=== PATIENT | male | born 1985 | race American Indian/Alaskan Native ===

== ENCOUNTER 2017-02-19 06:11 | Emergency (ER) | payer SELFPAY ==
[2017-02-19 06:12] VITALS: BMI 26.6
[2017-02-19 06:27] VITALS: TEMP 98.1
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
[2017-02-19 08:13] VITALS: BP 121/78; PULSE 67; RESP 18; O2SAT 99
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
== END 2017-02-19 08:17 | disposition home or self-care (01) ==
LOC: C.ER 06:11
DX: S39.012A Strain of muscle, fascia and tendon of lower back, initial encounter (principal); S80.01XA Contusion of right knee, initial encounter; V89.2XXA Person injured in unspecified motor-vehicle accident, traffic, initial encounter

== ENCOUNTER 2017-02-20 17:42 | Emergency (ER) | payer SELFPAY ==
[2017-02-20 17:43] VITALS: BMI 26.6
--- NOTE | 2017-02-20 18:14 | C.PDOC ---
History Of Present Illness 31 yo male, hx of substance abuse, presents via ems, for "acting up". pt has known h/o of pcp abuse. upon arrival states he drank beer today. no si/hi/ halluincations. also c/o of right shoulder pain. no known trauma. Time Seen by Provider: 02/20/17 17:53 Chief Complaint (Nursing): Substance Abuse Past Medical History Reviewed: Historical Data, Nursing Documentation, Vital Signs Vital Signs: Last Vital Signs Temp 97.9 F 02/20/17 17:51 Pulse 98 H 02/20/17 17:51 Resp 18 02/20/17 17:51 BP 154/97 H 02/20/17 17:51 Pulse Ox 98 02/20/17 18:14 - Medical History PMH: Depression, HTN (on and off) Family History: States: Unknown Family Hx - Social History Hx Alcohol Use: Yes Hx Substance Use: Yes - Immunization History Hx Tetanus Toxoid Vaccination: No Hx Influenza Vaccination: No Hx Pneumococcal Vaccination: No Review Of Systems Musculoskeletal: Positive for: Shoulder Pain Physical Exam - Physical Exam Appears: Well, No Acute Distress, Other (awake alert responds to questions appropriately. ) Skin: Normal Color, Warm, Dry Eye(s): bilateral: Normal Inspection, PERRL, EOMI Nose: Normal Throat: Normal Neck: Normal Cardiovascular: Rhythm Regular Respiratory: Normal Breath Sounds Gastrointestinal/Abdominal: Normal Exam Back: Normal Inspection Extremity: Normal ROM, Tenderness (mild right), No Deformity, No Swelling ED Course And Treatment - Laboratory Results Result Diagrams: 02/20/17 18:11 02/20/17 18:35 O2 Sat by Pulse Oximetry: 98 Medical Decision Making Medical Decision Making: suspect substance abuse. noted previous records with similar 830: pt observed 3 hours. clinicaly sober, ambulatory steady gait. oreinted x 3. pcp positive. pt cooperative, not agitated through ed stay. pt asking for dc. Disposition - Disposition Disposition: HOME/ ROUTINE Disposition Time: 20:25 Condition: STABLE Additional Instructions: return to er with worsening symtoms or concerns. Instructions: Polysubstance Abuse (ED) Forms: [employer] (Faroese) - Clinical Impression Clinical Impression: Drug abuse
[2017-02-20 18:40] LABS: BASO % 0.3 % (0.0-2.0); EOS % 0.2 % (0.0-4.0); HEMOGLOBIN 14.6 g/dL (12.0-18.0); LYMPH # 0.9 K/uL (1.0-4.3); LYMPH % 10.8 % (20.0-40.0); MEAN CELL VOLUME 95.6 fL (80.0-94.0); MEAN CORPUSCULAR HEMOGLOBIN 33.6 pg (27.0-31.0); MEAN CORPUSCULAR HGB CONC 35.1 g/dL (33.0-37.0); MEAN PLATELET VOLUME 7.9 fL (7.2-11.7); MONO # 0.6 K/uL (0.0-0.8); MONO % 6.7 % (0.0-10.0); NEUT # 6.9 K/uL (1.8-7.0); NRBC % 0.1 % (0.0-2.0); RBC 4.36 Mil/uL (4.40-5.90); RED CELL DISTRIBUTION WIDTH 12.9 % (11.5-14.5); WHITE BLOOD COUNT 8.4 K/uL (4.8-10.8)
[2017-02-20 18:51] LABS: ACETAMINOPHEN < 10.0 ug/mL (10.0-30.0); ALB/GLOB RATIO 1.5 (1.0-2.1); ALBUMIN 4.3 g/dL (3.5-5.0); ALT/SGPT 50 U/L (21-72); AST/SGOT 41 U/L (17-59); BLOOD UREA NITROGEN 15 mg/dL (9-20); CALCIUM 9.8 mg/dl (8.6-10.4); GFR AFRICAN-AMERICAN > 60; GFR NON-AFRICAN AMERICAN > 60; SALICYLATE < 1.0 mg/dL 1
[2017-02-20 19:15] LABS: URINE BILIRUBIN NEGATIVE (NEGATIVE); URINE BLOOD NEGATIVE (NEGATIVE); URINE CLARITY Clear (Clear); URINE COLOR Colorless (YELLOW); URINE GLUCOSE (UA) NORMAL (Normal); URINE LEUKOCYTE ESTERASE NEG Leu/uL (Negative); URINE NITRATE NEGATIVE (NEGATIVE); URINE PROTEIN NEGATIVE (NEGATIVE); URINE UROBILINOGEN NORMAL mg/dL (0.2-1.0)
[2017-02-20 19:29] LABS: BARBITURATES, UR NEGATIVE (NEGATIVE); BENZODIAZEPINES, UR NEGATIVE (NEGATIVE); OPIATES, UR NEGATIVE (NEGATIVE); PHENCYCLIDINE, UR POSITIVE (NEGATIVE)
[2017-02-20 20:46] VITALS: BP 144/89; PULSE 99; RESP 22; TEMP 99; O2SAT 100
--- NOTE | 2017-02-21 08:47 | RAD ---
PROCEDURE: Radiographs of the Right Shoulder HISTORY: shoulder pain COMPARISON: No prior. FINDINGS: BONES: Technically limited examination. No evidence of fracture. JOINTS: Normal. Glenohumeral and acromioclavicular joints preserved. No osteoarthritis. SOFT TISSUES: Normal. OTHER FINDINGS: None. IMPRESSION: No acute fracture. Limited examination
== END 2017-02-20 20:47 | disposition home or self-care (01) ==
LOC: C.ER 17:42
DX: F19.10 Other psychoactive substance abuse, uncomplicated (principal); I10 Essential (primary) hypertension
CPT/HCPCS: 73030; 80053; 81001; 82948; 85025; 99285; G0480

== ENCOUNTER 2018-04-19 18:28 | Emergency (ER) | payer MEDICAID ==
[2018-04-19 18:28] VITALS: BMI 26.6
[2018-04-19 18:45] VITALS: BP 132/78; PULSE 72; RESP 18; TEMP 99.8; O2SAT 99
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
== END 2018-04-19 20:59 | disposition home or self-care (01) ==
LOC: C.ER 18:28
DX: S20.212A Contusion of left front wall of thorax, initial encounter (principal); W50.0XXA Accidental hit or strike by another person, initial encounter

== ENCOUNTER 2018-06-06 23:18 | Emergency (ER) | payer SELFPAY ==
[2018-06-06 23:18] VITALS: BMI 26.6
[2018-06-06 23:32] VITALS: BP 116/81; PULSE 88; RESP 20; TEMP 98.6; O2SAT 98
--- NOTE | 2018-06-07 01:01 | C.PDOC ---
History Of Present Illness 33 year old male presents to the ED c/o lump underneath his lower lip. Patient reports lump is painful. Patient denies fever, chills, rash, nausea, vomit, injury, fall, trauma. Time Seen by Provider: 06/07/18 00:01 Chief Complaint (Nursing): Medical Clearance History Per: Patient History/Exam Limitations: no limitations Onset/Duration Of Symptoms: Hrs Current Symptoms Are (Timing): Still Present Recent travel outside of the [place]: No Additional History Per: Patient Past Medical History Reviewed: Historical Data, Nursing Documentation, Vital Signs Vital Signs: Last Vital Signs Temp 98.6 F 06/06/18 23:26 Pulse 88 06/06/18 23:26 Resp 20 06/06/18 23:26 BP 116/81 06/06/18 23:26 Pulse Ox 98 06/06/18 23:26 Primary Care Provider: Shaik Cahvira - Medical History PMH: Bronchitis, Depression, HTN (on and off) Denies: Diabetes, Hepatitis, HIV, Seizures, Sexually Transmitted Disease Surgical History: No Surg Hx Family History: States: Unknown Family Hx - Social History Hx Alcohol Use: Yes Hx Substance Use: No - Immunization History Hx Tetanus Toxoid Vaccination: No Hx Influenza Vaccination: No Hx Pneumococcal Vaccination: No Review Of Systems Constitutional: Negative for: Fever, Chills ENT: Positive for: Mouth Pain, Mouth Swelling. Negative for: Ear Pain, Nose Discharge, Throat Pain Respiratory: Negative for: Cough, Shortness of Breath Gastrointestinal: Negative for: Nausea, Vomiting Skin: Negative for: Rash Neurological: Negative for: Headache Physical Exam - Physical Exam Appears: Non-toxic, No Acute Distress Skin: Normal Color, Warm, Dry, No Rash Head: Atraumatic, Normacephalic Eye(s): bilateral: Normal Inspection Ear(s): Bilateral: Normal Nose: Normal Oral Mucosa: Moist Lips: Other (0.5 cm area of induration below lower lip, tender to palpation. no drainage) Throat: Normal, No Erythema, No Exudate Neck: Normal ROM, Supple Chest: Symmetrical Cardiovascular: Rhythm Regular, No Friction Rub, No Murmur Respiratory: Normal Breath Sounds, No Rales, No Rhonchi, No Wheezing Gastrointestinal/Abdominal: Soft, No Tenderness Back: Normal Inspection, No CVA Tenderness Extremity: Normal ROM Neurological/Psych: Oriented x3, Normal Speech, Normal Cognition, Normal Motor Gait: Steady ED Course And Treatment O2 Sat by Pulse Oximetry: 98 (ON RA) Pulse Ox Interpretation: Normal Medical Decision Making Medical Decision Making: Plan: * Clindamycin 300 mg PO Patient advised to follow up with PMD. Disposition - Disposition Referrals: Shaik Chavira MD [Staff Provider] - Disposition: HOME/ ROUTINE Disposition Time: 01:00 Condition: GOOD Additional Instructions: Follow up with the medical doctor within 1-2 days. Return if worsened. 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 - Scribe Statement The provider has reviewed the documentation as recorded by the Scribe Nathaniel Potter All medical record entries made by the Scribe were at my direction and personally dictated by me. I have reviewed the chart and agree that the record accurately reflects my personal performance of the history, physical exam, medical decision making, and the department course for this patient. I have also personally directed, reviewed, and agree with the discharge instructions and disposition.
== END 2018-06-07 01:05 | disposition home or self-care (01) ==
LOC: C.ER 23:18
DX: L73.9 Follicular disorder, unspecified (principal); K13.0 Diseases of lips; I10 Essential (primary) hypertension; F32.9 Major depressive disorder, single episode, unspecified